=== PATIENT | male | born 1950 | race Caucasian/White ===

== ENCOUNTER 2016-09-19 14:59 | Emergency (ER) | payer OTHER ==
[~2016-09-19] VITALS: Ht 182.9 cm; Wt 113.4 kg
[2016-09-19 15:59] VITALS: BP 136/65
[2016-09-19] MEDS ORDERED: LIDOCAINE 1% HCL (LOCAL ANESTH.) INJ 20ML MDV IJ ONE (16:45)
== END 2016-09-19 17:22 | disposition home or self-care (01) ==
LOC: ER 14:59
DX: S61.212A Laceration without foreign body of right middle finger without damage to nail, initial encounter (principal); E11.9 Type 2 diabetes mellitus without complications; I10 Essential (primary) hypertension; W45.8XXA Other foreign body or object entering through skin, initial encounter; Y93.89 Activity, other specified; Y99.8 Other external cause status; Y92.89 Other specified places as the place of occurrence of the external cause
CPT/HCPCS: 12001; 99283; J2001

== ENCOUNTER → 2018-06-09 | Emergency (ER) | payer OTHER | END | disposition left against medical advice (07) | LOC: ER 22:19 | DX: R04.0 Epistaxis (principal); Z53.21 Procedure and treatment not carried out due to patient leaving prior to being seen by health care provider ==

== ENCOUNTER 2019-04-12 08:44 | Inpatient (IN) | payer OTHER ==
[~2019-04-12] VITALS: Ht 182.9 cm; Wt 120.4 kg
[2019-04-12] MEDS ORDERED: SODIUM CHLORIDE 0.9% 1,000 ML IV ONE ×2 (09:19)
[2019-04-12] MEDS ORDERED: IOHEXOL 300 MG/ML 100ML BOTTLE IJ ONE (09:28)
[2019-04-12] MEDS ORDERED: cefTRIAXone 1GM/50ML D5W 50 ML IV ONE (09:30)
[2019-04-12 09:45] LABS: Basophils # (auto) 0 uL; Basophils % (auto) 0.4 % (0.0-2.0); Eosinophils # (auto) 0 uL; Hemoglobin 16.9 g/dL (13.5-17.5); Lymphocytes # (auto) 0.6 uL; Lymphocytes % (auto) 10.1 % (10.0-50.0); Mean Corpuscular Hemoglobin 28.2 pg (28.0-32.0); Mean Corpuscular Hgb Conc. 34.4 g/dL (32.0-36.0); Mean Corpuscular Volume 81.9 fL (80.0-100.0); Monocytes # (auto) 0.4 uL; Monocytes % (auto) 6.6 % (0.0-12.0); Neutrophils # (auto) 5.1 uL; Neutrophils % (auto) 82.9 % (37.0-80.0); Nucleated Red Blood Cells % 0.1 %; Platelet Count (auto) 134 10^3/uL (140-450); Red Blood Cells 5.98 10^6/uL (4.5-5.90); Red Cell Distribution Width 14.6 % (11.8-14.3); White Blood Cell 6.2 10^3/uL (4.4-10.8)
[2019-04-12 10:04] LABS: Alanine Aminotransferase 32 U/L (16-61); Albumin 3.8 g/dL (3.4-5.0); Anion Gap 7 (5-15); Aspartate Aminotransferase 22 U/L (15-37); BUN/Creatinine Ratio 8.7; Blood Urea Nitrogen 11 mg/dL (7-18); Calcium 8.4 mg/dL (8.5-10.1); Carbon Dioxide 27 mmol/L (21-32); Chloride 101 mmol/L (98-107); GFR African American 74 mL/min; GFR Non-African American 61 mL/min; Glucose 152 mg/dL (74-106); Potassium 3.9 mmol/L (3.5-5.1); Sodium 135 mmol/L (136-145)
[2019-04-12 10:09] LABS: Alkaline Phosphatase 91 U/L (45-117); Bilirubin, Total 1.5 mg/dL (0.2-1.0); Total Protein 7.3 g/dL (6.4-8.2)
[2019-04-12] MEDS ORDERED: HYDROmorphone HCL 2 MG/ML VL IV ONE (14:45)
[2019-04-12] MEDS ORDERED: ONDANSETRON HCL 4 MG/2 ML VIAL IV ONE ×2 (14:45→16:15)
[2019-04-12 15:07] LABS: Amylase 47 U/L (25-115); Lipase 113 U/L (73-393)
[2019-04-12 17:18] LABS: Urine Bacteria NONE SEEN /hpf (None Seen); Urine Blood 1+ /uL (Negative); Urine Specific Gravity 1.035 (1.001-1.035); Urine WBC <1 /hpf (0 - 3)
[2019-04-12 17:31] LABS: Alcohol, Urine < 3.0 mg/dL (0-5); Amphetamine Screen, Urine POSITIVE (NEGATIVE); Barbiturate Scree,Urine NEGATIVE (NEGATIVE); Benzodiazephine Screen, Urine NEGATIVE (NEGATIVE); Cannabinoid Screen, Urine NEGATIVE (NEGATIVE); Cocaine Screen, Urine NEGATIVE (NEGATIVE); Opiate Scree,Urine NEGATIVE (NEGATIVE); Phencyclidine Screen, Urine NEGATIVE (NEGATIVE)
[2019-04-12] MEDS ORDERED: LACTULOSE 20Gm/30ML SOLN PO PRN (17:45)
[2019-04-12] MEDS ORDERED: NITROGLYCERIN 0.4 MG SL TAB SL PRN (17:45)
[2019-04-12] MEDS ORDERED: MORPHINE SULF INJ 2 MG/ML SYRINGE 1ML IV PRN (17:45)
[2019-04-12] MEDS ORDERED: DEXTROSE (50%) 50ML SYRG IV PRN (17:45)
[2019-04-12] MEDS ORDERED: MORPHINE SULFATE 4 MG/ML SYR/VIAL IV PRN (17:45)
[2019-04-12] MEDS ORDERED: TEMAZEPAM 15 MG CAP PO PRN (17:45)
[2019-04-12] MEDS ORDERED: ACETAMINOPHEN 500 MG TAB PO PRN (17:45)
[2019-04-12] MEDS ORDERED: PROMETHAZINE HCL 25 MG/ML 1ML IV PRN (17:45)
[2019-04-12] MEDS ORDERED: ALBUTEROL SULF 2.5 MG/0.5ML(0.5%) NEB SOLN NEB PRN (17:45)
--- NOTE | 2019-04-12 18:35 | NUR ---
RT NOTE PT WAS SEEN BY RT FOR PRN HHN TX IN THE ER. PT IS SITTING IN BED WITH S/S OF SOB OR DISTRESS. HR 101, R 22, BS DIM WITH CRACKLES, POX 97% ON 3L NASAL CANNULA. PT STATES NO TREATMENT NEEDED AT THIS TIME. CONT ORDERED Addendum: 04/12/19 at 1842 by Cat Marie RT Amended: Links added.
[2019-04-12 20:03] VITALS: BP 160/80
[2019-04-12 20:45] VITALS: BP 157/68
[2019-04-12] MEDS: SODIUM CHLORIDE 0.9% 1,000 ML IV SCH (20:45)
--- NOTE | 2019-04-12 20:45 | NUR ---
Telemetry admit from ER ISSA GARCIA admitted to Telemetry unit. Patient oriented to SCHUYLER NEGRON, RN primary RN, unit, room, bed, and unit policies regarding patient care and visiting hours. Patient now on continuous telemetry monitoring, tele box # 64 and telemetry reading on arrival to unit is sinus tachycardia at 101 beats per minute with PAC's and a PVC. Patient placed on bedside oxygen, weighed by bedscale and encouraged to call if they need something. All questions and concerns addressed, patient verbalized understanding. Bed in lowest locked position, side rails up x2, call light within reach, bed alarm on. Will round every hour and as needed and continue to monitor.
[2019-04-12 22:00] VITALS: BP 113/50
[2019-04-12] MEDS: ACCU-CHEK COMFORT CURVE STRIP VI SCH (22:34)
[2019-04-12] MEDS: InsuLIN REG 1unit/0.01ml Soln (100units/ml) SC SCH (22:34)
[2019-04-12] MEDS ORDERED: METF-370 PO (23:14)
[2019-04-12] MEDS ORDERED: ATO40T PO (23:14)
[2019-04-12] MEDS ORDERED: HCTZ25T PO (23:14)
[2019-04-13] MEDS: SODIUM CHLORIDE 0.9% 1,000 ML IV SCH ×3 (03:17→23:34)
[2019-04-13 05:21] VITALS: BP 135/69
[2019-04-13 05:44] LABS: Basophils # (auto) 0 uL; Basophils % (auto) 0.8 % (0.0-2.0); Eosinophils # (auto) 0 uL; Hematocrit 47.3 % (41.0-53.0); Hemoglobin 15.8 g/dL (13.5-17.5); Lymphocytes # (auto) 0.6 uL; Lymphocytes % (auto) 11.5 % (10.0-50.0); Mean Corpuscular Hemoglobin 27.7 pg (28.0-32.0); Mean Corpuscular Hgb Conc. 33.4 g/dL (32.0-36.0); Mean Corpuscular Volume 82.9 fL (80.0-100.0); Monocytes # (auto) 0.4 uL; Monocytes % (auto) 8.4 % (0.0-12.0); Neutrophils # (auto) 3.9 uL; Neutrophils % (auto) 79.3 % (37.0-80.0); Nucleated Red Blood Cells % 0.2 %; Platelet Count (auto) 102 10^3/uL (140-450); Red Cell Distribution Width 14.3 % (11.8-14.3); White Blood Cell 4.9 10^3/uL (4.4-10.8)
[2019-04-13 06:27] LABS: BUN/Creatinine Ratio 12.5; Bilirubin, Total 1.2 mg/dL (0.2-1.0); Calcium 7.9 mg/dL (8.5-10.1); Potassium 3.9 mmol/L (3.5-5.1); Total Protein 6.3 g/dL (6.4-8.2)
[2019-04-13] MEDS: HYDROcodone-ACET 5/325MG TAB PO PRN ×2 (06:54→21:01)
[2019-04-13] MEDS: InsuLIN REG 1unit/0.01ml Soln (100units/ml) SC SCH ×4 (06:56→21:05)
[2019-04-13] MEDS: ACCU-CHEK COMFORT CURVE STRIP VI SCH ×4 (06:56→21:02)
--- NOTE | 2019-04-13 07:02 | NUR ---
Closing Note Patient lying in bed, awake and alert. No s/s of distress. Bed in lowest locked position, side rails up x2, call light within reach, bed alarm on. Care endorsed to dayshift RN.
--- NOTE | 2019-04-13 07:30 | NUR ---
Opening Shift Note Assumed care of patient, awake and alert. No S/S of distress/SOB or pain. Oxygen via nasal cannula currently at 5L/min. Lowered to 4L/min. will continue to monitor patients o2 saturation. Instructed on POC and to call for assist PRN, will continue to monitor for changes Q1hr and PRN.
[2019-04-13 08:00] VITALS: BP 126/66
[2019-04-13] MEDS: CALCIUM W/VIT D (600MG/400IU) TAB PO SCH ×2 (08:02→17:57)
[2019-04-13 09:41] VITALS: BP 126/66
[2019-04-13] MEDS: PANTOPRAZOLE 40 MG TAB PO SCH (10:51)
[2019-04-13] MEDS: ENOXAPARIN SOD 40 MG/0.4 ML SYRINGE SC SCH (10:52)
[2019-04-13] MEDS ORDERED: LEVOFLOXACIN 500 MG TAB PO ONE (12:00)
[2019-04-13 14:56] VITALS: BP 142/66
--- NOTE | 2019-04-13 15:26 | NUR ---
ASSESSED PT FOR THE REQUIREMENT OF MED NEB PRN TX. PT ON 3L NC WITH CLEAR BS, SPO2 99%, HR 89, RR 18. NO DISTRESS NOTED. MED NEB NOT INDICATED. WILL CONTINUE TO MONITOR PT.
[2019-04-13 16:56] VITALS: BP 101/57
--- NOTE | 2019-04-13 19:20 | NUR ---
Opening Shift Note Assumed care of patient, eyes closed, respirations even and unlabored, appears asleep. Patient awakens to name and touch. No S/S of distress/SOB or pain. Bed in lowest locked position, side rails up x2, call light within reach. Instructed on POC and to call for assist PRN, will continue to monitor for changes Q1hr and PRN.
--- NOTE | 2019-04-13 20:20 | NUR ---
Respiratory note: PT ASSESSED FOR PRN MED NEB TX. HR 101, RR 18, SPO2 92% ON 2L NC. NO SIGNS OF ANY RESPIRATORY DISTRESS NOTED. ADVISED PT TO CALL IF TX IS NEEDED. RT NAME AND PAGER NUMBER WRITTEN ON PT'S BOARD.
--- NOTE | 2019-04-13 21:00 | NUR ---
Fever Patient noted to have 102.2 temperature and patient reporting 10/10 headache pain. Administered Tiger as ordered (see emar), will continue to monitor.
[2019-04-13 22:00] VITALS: BP 119/71
--- NOTE | 2019-04-13 22:15 | NUR ---
Temperature Reassessment Patient temperature reassessed and found to be 98.0 degrees Fahrenheit. No s/s of distress, will continue to monitor.
[2019-04-14 05:00] VITALS: BP 134/75
[2019-04-14] MEDS: HYDROcodone-ACET 5/325MG TAB PO PRN (05:40)
[2019-04-14] MEDS: InsuLIN REG 1unit/0.01ml Soln (100units/ml) SC SCH (06:44)
[2019-04-14] MEDS: ACCU-CHEK COMFORT CURVE STRIP VI SCH (06:44)
--- NOTE | 2019-04-14 06:45 | NUR ---
Temperature Temperature noted to be 100.7 degrees Fahrenheit at 06:00 vital sign check and 03/28 headache reported. Patient noted to be diaphoretic. Blankets removed and cooling measures provided. [place] administered as ordered (see emar) and temperature now noted to be 99.1. No s/s of distress at this time, will continue to monitor.
--- NOTE | 2019-04-14 06:53 | NUR ---
Closing Note Patient lying in bed, eyes closed, respirations even and unlabored, appears asleep. Patient awakens to name and touch. No s/s of distress. Bed in lowest locked position, side rails up x2, call light within reach. Care endorsed to dayshift RN.
--- NOTE | 2019-04-14 07:30 | NUR ---
Opening Shift Note Assumed care of patient, awake and alert. No S/S of distress/SOB. Pain reported as a head ache. Patient has been medicated. Pain management discussed with patient. Instructed on POC and to call for assist PRN, will continue to monitor for changes Q1hr and PRN.
[2019-04-14] MEDS: CALCIUM W/VIT D (600MG/400IU) TAB PO SCH (07:52)
[2019-04-14 08:00] VITALS: BP 151/77
[2019-04-14 09:00] VITALS: BP 151/77
[2019-04-14] MEDS: SODIUM CHLORIDE 0.9% 1,000 ML IV SCH (09:48)
[2019-04-14] MEDS: PANTOPRAZOLE 40 MG TAB PO SCH (09:48)
[2019-04-14] MEDS: ENOXAPARIN SOD 40 MG/0.4 ML SYRINGE SC SCH (09:48)
[2019-04-14] MEDS ORDERED: LEVOFLOXACIN 500 MG TAB PO SCH (10:00)
[2019-04-14 10:37] VITALS: BP 151/77
--- NOTE | 2019-04-14 10:52 | NUR ---
Connor catheter dc'd Order to discontinue connor catheter. Connor dc'd with clean technique following deflation of balloon. Patient tolerated well with no complaints of pain. Continue care. URINE IS LIGHT VIJAY AND CLEAR IN APPEARANCE. MILD ODOR NOTED. 450ML TOTAL EMPTIED FROM CONNOR BAG BEFORE DC.
--- NOTE | 2019-04-14 11:15 | NUR ---
Discharge instructions given as ordered. [facility]. All questions and concerns addressed. Patient verbalized understanding. IV removed with catheter intact, pressure dressing applied, connor catheter removed. Telemetry unit returned to ICU. Patient taken to vehicle via wheelchair with all personal belongings, accompanied by staff and family member. No distress noted at time of departure.
== END 2019-04-14 11:15 | disposition home or self-care (01) | DRG 551 ==
LOC: ER 08:44 → TELE 08:45 → TELE-WESTW 20:40
PROVIDERS: ADMIT Internal Medicine; ATTEND Internal Medicine
DX: S32.019A Unspecified fracture of first lumbar vertebra, initial encounter for closed fracture (principal); J18.1 Lobar pneumonia, unspecified organism; C78.7 Secondary malignant neoplasm of liver and intrahepatic bile duct; J44.1 Chronic obstructive pulmonary disease with (acute) exacerbation; J44.0 Chronic obstructive pulmonary disease with (acute) lower respiratory infection; C79.51 Secondary malignant neoplasm of bone; M54.5 Low back pain; E11.9 Type 2 diabetes mellitus without complications; F15.10 Other stimulant abuse, uncomplicated; G89.29 Other chronic pain; I10 Essential (primary) hypertension; I70.0 Atherosclerosis of aorta; E66.9 Obesity, unspecified; X58.XXXA Exposure to other specified factors, initial encounter; R91.1 Solitary pulmonary nodule; K42.9 Umbilical hernia without obstruction or gangrene; Z80.1 Family history of malignant neoplasm of trachea, bronchus and lung; Z87.891 Personal history of nicotine dependence; Z90.49 Acquired absence of other specified parts of digestive tract; Z79.899 Other long term (current) drug therapy; Y93.89 Activity, other specified; Y92.89 Other specified places as the place of occurrence of the external cause; Y99.8 Other external cause status; Z68.36 Body mass index [BMI] 36.0-36.9, adult
CPT/HCPCS: 36415; 51702; 70450; 71045; 72148; 74177; 80053; 80307; 81001; 82150; 82962; 83036; 83605; 83690; 83880; 84484; 85025; 87040; 93005; 96365; 96375; 96376; 99291; G0378; J0696; J1815; J2405

== ENCOUNTER 2020-03-09 13:21 | Emergency (ER) | payer OTHER ==
[~2020-03-09] VITALS: Ht 180.3 cm; Wt 117.9 kg
[~2020-03-09 13:21] MED LIST: ATO40T PO; HCTZ25T PO; METF-370 PO
[2020-03-09 13:47] VITALS: BP 154/101
[2020-03-09] MEDS ORDERED: MECLIZINE HCL 25 MG TAB PO ONE (14:30)
[2020-03-09 16:33] LABS: Basophils # (auto) 0 10 ^3/uL (0-0.2); Basophils % (auto) 0.5 % (0.0-2.0); Eosinophils # (auto) 0.1 10 ^3/uL (0-0.8); Hemoglobin 17.9 g/dL (13.5-17.5); Lymphocytes # (auto) 2.6 10 ^3/uL (0.4-5.4); Monocytes # (auto) 0.8 10 ^3/uL (0-1.3); Nucleated Red Blood Cells % 0.1 %
[2020-03-09 16:35] LABS: Eosinophils % (auto) 1.1 % (0.0-7.0); Mean Corpuscular Hemoglobin 29.1 pg (28.0-32.0); Mean Corpuscular Hgb Conc. 34.4 g/dL (32.0-36.0); Mean Corpuscular Volume 84.6 fL (80.0-100.0); Monocytes % (auto) 7.2 % (0.0-12.0); Neutrophils # (auto) 6.9 10 ^3/uL (1.6-8.6); Neutrophils % (auto) 66.2 % (37.0-80.0); Platelet Count (auto) 183 10^3/uL (140-450); Red Blood Cells 6.14 10^6/uL (4.5-5.90); Red Cell Distribution Width 14.5 % (11.8-14.3); White Blood Cell 10.4 10^3/uL (4.4-10.8)
[2020-03-09 17:37] LABS: Alanine Aminotransferase 31 U/L (16-61); Alkaline Phosphatase 95 U/L (45-117); Anion Gap 10 (5-15); Aspartate Aminotransferase 17 U/L (15-37); BUN/Creatinine Ratio 14.6; Blood Urea Nitrogen 15 mg/dL (7-18); Calcium 9.2 mg/dL (8.5-10.1); Carbon Dioxide 25 mmol/L (21-32); Chloride 100 mmol/L (98-107); GFR African American 93 mL/min; GFR Non-African American 77 mL/min; Glucose 167 mg/dL (74-106); Potassium 3.6 mmol/L (3.5-5.1); Sodium 135 mmol/L (136-145)
[2020-03-09 17:38] LABS: Albumin 3.8 g/dL (3.4-5.0); Magnesium 1.8 mg/dL (1.6-2.6); Total Protein 7.4 g/dL (6.4-8.2)
== END 2020-03-09 19:30 | disposition left against medical advice (07) ==
LOC: ER 13:21
DX: R42 Dizziness and giddiness (principal)
CPT/HCPCS: 36415; 70450; 80053; 83735; 84484; 85025; 93005; 99285; J8597

== ENCOUNTER 2020-09-14 01:10 | Emergency (ER) | payer OTHER ==
[~2020-09-14] VITALS: Ht 182.9 cm; Wt 119.3 kg
[~2020-09-14 01:10] MED LIST changes: -HCTZ25T PO; +HYDR25TA5 PO
[2020-09-14 02:19] LABS: Basophils # (auto) 0.1 10 ^3/uL (0-0.2); Basophils % (auto) 0.7 % (0.0-2.0); Eosinophils # (auto) 0.2 10 ^3/uL (0-0.8); Hematocrit 42.5 % (41.0-53.0); Hemoglobin 14.1 g/dL (13.5-17.5); Lymphocytes # (auto) 2.3 10 ^3/uL (0.4-5.4); Lymphocytes % (auto) 28.7 % (10.0-50.0); Mean Corpuscular Hemoglobin 27.8 pg (28.0-32.0); Mean Corpuscular Hgb Conc. 33.2 g/dL (32.0-36.0); Mean Corpuscular Volume 83.6 fL (80.0-100.0); Monocytes # (auto) 0.8 10 ^3/uL (0-1.3); Monocytes % (auto) 9.8 % (0.0-12.0); Neutrophils # (auto) 4.7 10 ^3/uL (1.6-8.6); Neutrophils % (auto) 58.8 % (37.0-80.0); Nucleated Red Blood Cells % 0.2 %; Platelet Count (auto) 180 10^3/uL (140-450); Red Blood Cells 5.08 10^6/uL (4.5-5.90); Red Cell Distribution Width 15.6 % (11.8-14.3)
[2020-09-14 02:39] LABS: Albumin 3.3 g/dL (3.4-5.0); Calcium 8.4 mg/dL (8.5-10.1)
[2020-09-14 02:43] LABS: Total Protein 6.8 g/dL (6.4-8.2)
[2020-09-14 03:30] VITALS: BP 119/80
== END 2020-09-14 04:00 | disposition left against medical advice (07) ==
LOC: ER 01:15
DX: R06.02 Shortness of breath (principal); Z53.21 Procedure and treatment not carried out due to patient leaving prior to being seen by health care provider
CPT/HCPCS: 36415; 71045; 80053; 83880; 84484; 85025; 93005

== ENCOUNTER 2021-04-16 20:40 | Emergency (ER) | payer OTHER ==
[~2021-04-16] VITALS: Ht 180.3 cm; Wt 114.5 kg
[2021-04-16 20:40] VITALS: BP 134/71
== END 2021-04-16 21:47 | disposition left against medical advice (07) ==
LOC: ER 20:40
DX: R07.9 Chest pain, unspecified (principal); R06.02 Shortness of breath; I11.0 Hypertensive heart disease with heart failure; I50.9 Heart failure, unspecified; Z53.21 Procedure and treatment not carried out due to patient leaving prior to being seen by health care provider
CPT/HCPCS: 93005

== ENCOUNTER 2022-10-15 19:48 | Emergency (ER) | payer OTHER ==
[~2022-10-15] VITALS: Ht 180.3 cm; Wt 117.4 kg
[2022-10-15 20:07] VITALS: BP 128/90
== END 2022-10-15 22:37 | disposition home or self-care (01) ==
LOC: ER 19:48
DX: S01.01XA Laceration without foreign body of scalp, initial encounter (principal); I10 Essential (primary) hypertension; E11.9 Type 2 diabetes mellitus without complications; E78.5 Hyperlipidemia, unspecified; Z90.49 Acquired absence of other specified parts of digestive tract; Z87.891 Personal history of nicotine dependence; Z79.899 Other long term (current) drug therapy; Y04.2XXA Assault by strike against or bumped into by another person, initial encounter; Y93.89 Activity, other specified; Y92.89 Other specified places as the place of occurrence of the external cause; Y99.8 Other external cause status
CPT/HCPCS: 12002; 70450

== ENCOUNTER 2024-11-19 19:12 | Emergency (ER) | payer OTHER, MEDICARE ==
[~2024-11-19] VITALS: Ht 180.3 cm; Wt 115.0 kg
[~2024-11-19 19:12] MED LIST changes: -ATO40T PO; +ATOR-507 PO
--- NOTE | 2024-11-19 19:52 | ED.PDOC ---
History of Present Illness HPI Comments 74 y/o obese M presents with nonradiating, umbilical abdominal pain. Patient is a poor historian. Patient reports history of current umbilical hernia. He states on pain beginning after lifting a heavy object at home, that he was trying to move, due to relocating to another home. He estimated object being 100lbs. No recent injuries, sick contact, spoiled food or illicit substance use, or travel endorsed. Patient also reports being diagnosed with prostate cancer 6x months ago and has an upcoming MRI to evaluate for possible metastasis to his spine. He denies having any nausea, vomiting, diarrhea, urinary symptoms, or further associated symptoms. Upon arrival to ED, patient was found hypertensive. He states on not taking his medications, this morning, due to misplacing and being unable to locate them, currently. He is unable to recall medication name. Time Seen by MD: 19:30 Primary Care Provider: RHETT Reviewed Notes: Nurses Notes, Medications, Allergies Allergies: Coded Allergies: NO KNOWN ALLERGIES (Unverified , 04/12/19) Home Meds Active Scripts Polyethylene Glycol 3350 (Miralax) 17 Gm Pow, 17 GM PO BID for 100 Days, #120 POW Prov:MAMADOU PRINGLE MD 11/19/24 Reported Medications Atorvastatin Calcium (Lipitor) 40 Mg Tab, 1 TAB PO DAILY, #30 TAB 5 Refills 04/12/19 Hctz (Hydrochlorothiazide) 25 Mg Tab, 25 MG PO DAILY, TAB 04/12/19 Metformin Hydrochloride (Metformin Hcl) 500 Mg Tab, 500 MG PO IBID for 30 Days, MG 04/12/19 Information Source: Patient Mode of Arrival: Ambulatory Severity: Moderate Timing: Hours Duration: Since onset Prehospital treatment: None Past Medical History PAST MEDICAL HISTORY: DM, High Lipids, HTN Surgical History: Appendectomy, Hernia Repair Family History Family History: Reviewed,noncontributory to illness Social History Smoker: Quit Greater Than 1 Year, Cigarettes Alcohol: Denies ETOH Use Drugs: Denies Drug Use Lives In: Home All Other Systems: Reviewed and Negative (Comprehensive systems review obtained and negative except for what is stated in the HPI.) Physical Exam General Appearance: No Apparent Distress, Normal HEENT: Normal ENT Inspection, Pharynx Normal, TMs Normal Neck: Full Range of Motion, Non-Tender, Normal, Normal Inspection Respiratory: Chest Non-Tender, Lungs Clear, No Accessory Muscle Use, No Respiratory Distress, Normal Breath Sounds Cardiovascular: No Edema, No JVD, No Murmur, No Gallop, Normal Peripheral Pulses, Regular Rate/Rhythm Breast Exam: Deferred Gastrointestinal: No Organomegaly, No Pulsatile Mass, Normal Bowel Sounds, Soft, Tenderness (umbilical region), Other (soft umbilical hernia, with associated mild tenderness ) Genitalia: Deferred Pelvic: Deferred Rectal: Deferred Extremities: No calf tenderness, Normal capillary refill, Normal inspection, Normal range of motion, Non-tender, No pedal edema Musculoskeletal : Apperance: Normal Neurologic: Alert, front line leader II-XII nml as Tested, No Motor Deficits, Normal Affect, Normal Mood, No Sensory Deficits Cerebellar Function: Normal Reflexes: Normal Skin: Dry, Normal Color, Warm Lymphatic: No Adenopathy Was a procedure done? Was a procedure done?: No Differential Dx Considerations may include: incarcerated vs strangulated hernia, musculoskeletal pain, gastritis, gastroenteritis, bowel obstruction, among others X-Ray, Labs, Meds, VS Vital Signs Date Time Temp Pulse Resp B/P (MAP) Pulse Ox O2 Delivery O2 Flow Rate FiO2 11/19/24 21:02 97 16 0 11/19/24 20:59 98.2 97 16 174/85 (114) 95 98.2 11/19/24 20:57 174/85 11/19/24 19:30 97.2 78 18 177/78 (111) 97 97.2 Lab Test 11/19/24 19:45 Range/Units White Blood Count 7.4 4.4-10.8 10^3/uL Red Blood Count 5.24 4.5-5.90 10^6/uL Hemoglobin 14.5 13.5-17.5 g/dL Hematocrit 42.8 41.0-53.0 % Mean Corpuscular Volume 81.7 80.0-100.0 fL Mean Corpuscular Hemoglobin 27.7 L 28.0-32.0 pg Mean Corpuscular Hemoglobin Concent 33.9 32.0-36.0 g/dL Red Cell Distribution Width 13.8 11.8-14.3 % Platelet Count 155 140-450 10^3/uL Mean Platelet Volume 9.2 6.9-10.8 fL Neutrophils (%) (Auto) 68.1 37.0-80.0 % Lymphocytes (%) (Auto) 20.8 10.0-50.0 % Monocytes (%) (Auto) 10.0 0.0-12.0 % Eosinophils (%) (Auto) 0.9 0.0-7.0 % Basophils (%) (Auto) 0.2 0.0-2.0 % Neutrophils # (Auto) 5.1 1.6-8.6 10 ^3/uL Lymphocytes # (Auto) 1.5 0.4-5.4 10 ^3/uL Monocytes # (Auto) 0.7 0-1.3 10 ^3/uL Eosinophils # (Auto) 0.1 0-0.8 10 ^3/uL Basophils # (Auto) 0 0-0.2 10 ^3/uL Nucleated Red Blood Cells 0.2 % Sodium Level 142 136-145 mmol/L Potassium Level 3.6 3.5-5.1 mmol/L Chloride Level 110 H 98-107 mmol/L Carbon Dioxide Level 24 20-31 mmol/L Anion Gap 8 5-15 Blood Urea Nitrogen 12 9-23 mg/dL Creatinine 0.89 0.700-1.30 mg/dL Glomerular Filtration Rate Calc 91 >90 mL/min BUN/Creatinine Ratio 13.5 10.0-20.0 Serum Glucose 161 H 74-106 mg/dL Calcium Level 9.8 8.7-10.4 mg/dL Total Bilirubin 1.8 H 0.2-1.0 mg/dL Aspartate Amino Transferase (AST) 155 H 13-40 U/L Alanine Aminotransferase (ALT) 75 H 7-40 U/L Alkaline Phosphatase 156 H 46-116 U/L Total Protein 6.9 5.7-8.2 g/dL Albumin 4.5 3.2-4.8 g/dL Lipase 25 12-53 U/L Current Medications Medications (Trade) Dose Ordered Sig/Génesis Route Start Time Stop Time Status Last Admin Acetaminophen/ Hydrocodone Bitart ([place] 10/325MG Tab) 1 tab ONCE ONCE PO 11/19/24 19:45 11/19/24 19:46 DC 11/19/24 20:55 Amlodipine Besylate (Norvasc Tablet) 5 mg ONCE ONCE PO 11/19/24 19:45 11/19/24 19:46 DC 11/19/24 20:57 [facility] [id number] [place] [id number] Ph: [phone] DIAGNOSTIC IMAGING Diagnostic Imaging Report : [id number] Signed PATIENT: ISSA GARCIA ACCT: [id number] UNIT: [id number] : 1950 LOC: ER ROOM / BED: / AGE / SEX: 74 / M ADM STATUS: REG ER SERVICE 33 ORDERING PHYSICIAN: MAMADOU PRINGLE MD PROCEDURE(s): ABPL - CT AB PEL WO CON-NO ORAL OR IV REASON: periumbilical pain ORDER NUMBER(s): [id number], ACCESSION NUMBER(s): [id number] Indication: periumbilical pain Technique: CT axial images of the abdomen and pelvis are obtained without contrast. Coronal and sagittal reformats were obtained. Radiation Dose Information: CTDI volume is 18.6 mGy. Dose-length product is 1044.1 mGy*cm Comparison: Chest radiograph from 09/14/2020 FINDINGS: There is limited interpretation of the abdomen and pelvis without administration of intravenous contrast. Examination degraded by motion. Right lower lobe pulmonary nodule with eccentric calcifications measuring 1.7 cm. Cardiomegaly. Coronary artery calcification disease. Tiny pericardial effusion. Adrenal glands, spleen and pancreas unremarkable in shape. Gallbladder suboptimally characterized. There is a 1.5 cm right hepatic lobe hypodense lesion.. No hydronephrosis, nephrolithiasis. Gastric distention. Small bowel loops demonstrate fecal like contents. Moderate volume stool in the colon. No secondary signs for appendicitis. Abdominal aortic atherosclerotic disease. Bladder partially distended. No free pelvic fluid. No inguinal lymphadenopathy. Paraumbilical hernia containing fat measuring 4.3 x 4.8 cm. Right acetabular sclerotic lesion measuring 1.8 cm. Left acetabular sclerotic lesion measuring 2.1 cm. Moderate to severe thoracolumbar degenerative disc disease. Chronic appearing L1 compression deformity with 20% loss height. Moderate to advanced lumbar facet hypertrophic changes Fat containing right inguinal hernia. IMPRESSION: Examination degraded by motion. Limited evaluation without contrast. 1. Paraumbilical hernia containing fat measuring 4.3 x 4.8 cm. 2. Atherosclerotic, coronary artery calcification disease. 3. Bilateral acetabular scar sclerotic lesions. Differential considerations include bone island, bone infarct, osteoblastic metastases. Correlate with clinical history and risk factors. 4. Fecal like contents within the small bowel which can be seen with ileus, hypomotility, bowel obstruction. 5. Nodule with some eccentric calcifications. Recommend follow-up per Fleischner society criteria. 6. A 1.5 cm right hepatic lobe hypodense lesion. Recommend 7. Multiphasic MRI abdomen in the nonemergent setting for further characterization. 8. Other findings as described. ATED BY: ESPERANZA DEMARCO MD DICTATED DATE/TIME: 11/19/242125 SIGNED BY: ESPERANZA DEMARCO MD SIGNED DATE/TIME: 11/19/242125 CC: Time of 1ST Reevaluation: 20:00 Reevaluation 1ST: Unchanged Patient Education/Counseling: Diagnosis, Treatment Family Education/Counseling: No Family Present Departure 1 Departure Time of Disposition: 22:00 Impression: Primary Impression: Umbilical hernia Additional Impressions: Liver lesion Lesion of pelvic bone Disposition: 01 HOME / SELF CARE / HOMELESS Condition: Stable e-Prescriptions Polyethylene Glycol 3350 (Miralax) 17 Gm Pow 17 GM PO BID for 100 Days, #120 POW Prov: MAMADOU PRINGLE MD 11/19/24 Discharged With: Self Critical Care Note Critical Care Time?: No Stability Stability form required: No Heart Score Heart Score: Heart Score Response (Comments) Value History N/A 0 EKG N/A 0 Age N/A 0 Risk Factors N/A 0 Troponin N/A 0 Total 0 I personally scribed for MAMADOU PRINGLE MD ([email or web address]) on 11/19/24 at 19:52. Electronically submitted by Ryne Ren ([email or web address]). I personally scribed for MAMADOU PRINGLE MD ([email or web address]) on 11/19/24 at 22:14. Electronically submitted by Ryne Ren [email or web address]). MAMADOU PRINGLE MD Nov 19, 2024 19:52
[2024-11-19 19:59] LABS: Basophils # (auto) 0 10 ^3/uL (0-0.2); Basophils % (auto) 0.2 % (0.0-2.0); Eosinophils # (auto) 0.1 10 ^3/uL (0-0.8); Eosinophils % (auto) 0.9 % (0.0-7.0); Hematocrit 42.8 % (41.0-53.0); Hemoglobin 14.5 g/dL (13.5-17.5); Lymphocytes # (auto) 1.5 10 ^3/uL (0.4-5.4); Lymphocytes % (auto) 20.8 % (10.0-50.0); Mean Corpuscular Hemoglobin 27.7 pg (28.0-32.0); Mean Corpuscular Hgb Conc. 33.9 g/dL (32.0-36.0); Mean Corpuscular Volume 81.7 fL (80.0-100.0); Monocytes # (auto) 0.7 10 ^3/uL (0-1.3); Neutrophils # (auto) 5.1 10 ^3/uL (1.6-8.6); Neutrophils % (auto) 68.1 % (37.0-80.0); Nucleated Red Blood Cells % 0.2 %; Platelet Count (auto) 155 10^3/uL (140-450); Red Blood Cells 5.24 10^6/uL (4.5-5.90); Red Cell Distribution Width 13.8 % (11.8-14.3); White Blood Cell 7.4 10^3/uL (4.4-10.8)
[2024-11-19 20:15] LABS: Albumin 4.5 g/dL (3.2-4.8); Anion Gap 8 (5-15); BUN/Creatinine Ratio 13.5 (10.0-20.0); Blood Urea Nitrogen 12 mg/dL (9-23); Calcium 9.8 mg/dL (8.7-10.4); Carbon Dioxide 24 mmol/L (20-31); Lipase 25 U/L (12-53); Potassium 3.6 mmol/L (3.5-5.1); Sodium 142 mmol/L (136-145); Total Protein 6.9 g/dL (5.7-8.2)
[2024-11-19 20:16] LABS: Alanine Aminotransferase 75 U/L (7-40); Alkaline Phosphatase 156 U/L (46-116); Aspartate Aminotransferase 155 U/L (13-40); Bilirubin, Total 1.8 mg/dL (0.2-1.0); Chloride 110 mmol/L (98-107); Glucose 161 mg/dL (74-106)
[2024-11-19] MEDS: HYDROcodone-ACET 10/325MG TAB PO ONE (20:55)
[2024-11-19] MEDS: amLODIPine BESYLATE 5 MG TAB PO ONE (20:57)
[2024-11-19 20:59] VITALS: BP 174/85; TEMP 98.2; O2SAT 95
[2024-11-19 21:02] VITALS: PULSE 97; RESP 16
--- NOTE | 2024-11-19 21:29 | DVH ---
Indication: periumbilical pain Technique: CT axial images of the abdomen and pelvis are obtained without contrast. Coronal and sagit ernesto reformats were obtained. Radiation Dose Information: CTDI volume is 18.6 mGy. Dose-length product is 1044.1 mGy*cm Comparison: Chest radiograph from 09/14/2020 FINDINGS: There is limited interpretation of the abdomen and pelvis without administration of intravenous contr ast. Examination degraded by motion. Right lower lobe pulmonary nodule with eccentric calcifications measuring 1.7 cm. Cardiomegaly. Coronary artery calcification disease. Tiny pericardial effusion. Adrenal glands, spleen and pancreas unremarkable in shape. Gallbladder suboptimally characterized. There is a 1.5 cm right hepatic lobe hypodense lesion.. No hydronephrosis, nephrolithiasis. Gastric distention. Small bowel loops demonstrate fecal like contents. Moderate volume stool in the colon. No secondary signs for appendicitis. Abdominal aortic atherosclerotic disease. Bladder partially distended. No free pelvic fluid. No ingui nal lymphadenopathy. Paraumbilical hernia containing fat measuring 4.3 x 4.8 cm. Right acetabular sclerotic lesion measuring 1.8 cm. Left acetabular sclerotic lesion measuring 2.1 c m. Moderate to severe thoracolumbar degenerative disc disease. Chronic appearing L1 compression defo rmity with 20% loss height. Moderate to advanced lumbar facet hypertrophic changes Fat containing right inguinal hernia. IMPRESSION: Examination degraded by motion. Limited evaluation without contrast. 1. Paraumbilical hernia containing fat measuring 4.3 x 4.8 cm. 2. Atherosclerotic, coronary artery calcification disease. 3. Bilateral acetabular scar sclerotic lesions. Differential considerations include bone island, bon e infarct, osteoblastic metastases. Correlate with clinical history and risk factors. 4. Fecal like contents within the small bowel which can be seen with ileus, hypomotility, bowel obstr uction. 5. Nodule with some eccentric calcifications. Recommend follow-up per Fleischner society criteria. 6. A 1.5 cm right hepatic lobe hypodense lesion. Recommend 7. Multiphasic MRI abdomen in the nonemergent setting for further characterization. 8. Other findings as described.
[2024-11-19] MEDS ORDERED: POLY335015 PO (21:40)
== END 2024-11-19 22:34 | disposition home or self-care (01) ==
LOC: ER 19:14
DX: K42.9 Umbilical hernia without obstruction or gangrene (principal); K76.9 Liver disease, unspecified; M99.85 Other biomechanical lesions of pelvic region; E11.9 Type 2 diabetes mellitus without complications; I10 Essential (primary) hypertension; E78.5 Hyperlipidemia, unspecified; E66.9 Obesity, unspecified; Z68.35 Body mass index [BMI] 35.0-35.9, adult; Z87.891 Personal history of nicotine dependence; Z90.49 Acquired absence of other specified parts of digestive tract; Z98.890 Other specified postprocedural states; Z79.899 Other long term (current) drug therapy
CPT/HCPCS: 36415; 74176; 80053; 83690; 85025